=== PATIENT | female | born 1970 | race Caucasian/White ===

== ENCOUNTER 2017-12-19 17:53 | Emergency (ER) | payer SELFPAY ==
--- NOTE | 2017-12-19 18:41 | UC ---
Throat Pain/Nasal Reji HPI - HPI Summary HPI Summary: 47-year-old female presents for headache and URI symptoms. States she began with cold-like symptoms 4 days ago including nasal congestion, nasal discharge, sore throat, and intermittent frontal headache. She was seen at an urgent care center at her home in [place], [place] and started on a Medrol Dosepak. She states today her headache became more constant and increased in intensity. She rates as a 7/10. Associated with some photophobia. States she has had migraines in the past but that this is different from those headaches. Took some [id number] acetaminophen without relief. States she's been taking [id number] Sudafed with minimal relief from her nasal congestion. Denies fever, chills, visual disturbances, facial droop, slurred speech, weakness, numbness, or tingling of the extremities, dizziness, chest pain, shortness of breath, abdominal pain, nausea, or vomiting. - History of Current Complaint Chief Complaint: UCRespiratory Stated Complaint: HEADACHES,COLD,COUGH Time Seen by Provider: 12/19/17 18:28 Hx Obtained From: Patient ?: No Onset/Duration: Gradual Onset, Lasting Days - 4 Severity: Moderate Pain Intensity: 7 Cough: None - Allergies/Home Medications Allergies/Adverse Reactions: Allergies Allergy/AdvReac Type Severity Reaction Status Date / Time lidocaine Allergy Swelling Verified 12/19/17 18:58 Home Medications: Home Medications Steroid ? Name 1 tab PO DAILY 12/19/17 [History] PMH/Surg Hx/FS Hx/Imm Hx Previously Healthy: Yes - denies significant past medical history - Surgical History Surgical History: None - Family History Family History: Noncontributory - Social History Occupation: Employed Full-time Lives: With Family Alcohol Use: None Substance Use Type: None Smoking Status (MU): Never Smoked Tobacco Review of Systems Constitutional: Negative Skin: Negative Eyes: Photophobia ENT: Nasal Discharge, Sinus Congestion Respiratory: Negative Cardiovascular: Negative Gastrointestinal: Negative Neurological: Headache Is Patient Immunocompromised?: No All Other Systems Reviewed And Are Negative: Yes Physical Exam Triage Information Reviewed: Yes Appearance: Well-Appearing, Well-Nourished, Pain Distress - Appears mildly uncomfortable Vital Signs: Initial Vital Signs Temp 99.0 F 12/19/17 18:08 Pulse 100 12/19/17 18:08 Resp 18 12/19/17 18:08 BP 141/86 12/19/17 18:08 Pulse Ox 99 12/19/17 18:08 Vital Signs Reviewed: Yes Eyes: Positive: Conjunctiva Clear. Negative: Discharge ENT: Positive: Pharyngeal erythema - Mild pharyngeal erythema with cobblestoning., Nasal congestion, Nasal drainage, TMs normal, Sinus tenderness - Mild frontal tenderness, Uvula midline. Negative: Tonsillar swelling, Tonsillar exudate, Trismus, Muffled voice, Hoarse voice Neck: Positive: Supple, Nontender, No Lymphadenopathy Respiratory: Positive: Lungs clear, Normal breath sounds, No respiratory distress Cardiovascular: Positive: RRR, No Murmur Neurological: Positive: Alert Skin Exam: Normal Re-Evaluation - Re-Evaluation First Eval Re-Evaluation Time: 19:44 Change: Improved Comment: Patient states headache is improving with ketoralac. Decreased to 4-5/ 10 from 710. Throat Pain/Nasal Course/Dx - Course Course Of Treatment: 47 year old female with 4 day history of URI symptoms and headache. She was seen at in her home in [place] at onset of symptoms and started on Medrol Dosepak. She presents today reporting continued URI symptoms and a constant, worsening headache. Exam unremarkable exept for some mild frontal sinus tenderness, nasal congestion, and mild pharyngeal erythema with cobblestoning. She was given a dose of IM ketoralac with improvement in her headache. She was running a low grade temperature of 99 F here. With this and the progression of symptoms will treat for acute bacterial sinusitis using 10 day course of Augmentin. Will have her continue with the Medrol Dosepak and start using saline rinses twice daily. Patient verbalizes understanding and agrees with POC. - Differential Dx/Diagnosis Differential Diagnosis/HQI/PQRI: Sinusitis, URI, Other - Tension-type headache, migraine Provider Diagnoses: acute sinusitis, elevated blood pressure reading Discharge - Sign-Out/Discharge Documenting (check all that apply): Patient Departure All imaging exams completed and their final reports reviewed: No Studies - Discharge Plan Condition: Stable Disposition: HOME Prescriptions: Amoxicillin/Clavulanate TAB* [Augmentin TAB 875*] 875 mg PO BID #20 tab Patient Education Materials: Sinusitis (ED) Referrals: No Primary Care Phys,NOPCP [Primary Care Provider] - Additional Instructions: Your symptoms appear to be from a sinus infection. Because of the worsening of symptoms and the low grade fever here in the clinic I am going to start you on an antibiotic. Start Augmentin 1 tab every 12 hours for 10 days. Be sure to take with food and complete the entire course even if feeling better. I recommend using a saline rinse kit such as NeilMed or Netti Pot at least twice a day to help thin secretions and promote drainage. Continue to use an [id number] decongestant such as Sudafed according to directions. Finish out the Medrol dose pack as prescribed. You were given a shot of pain medication called ketoralac (Toradol) in the clinic. Do not take any other anti-inflammatory medications such as ibuprofen ( Advil, Motrin), naproxen (Aleve), or aspirin for at least 8 hours after receiving this medication. You may safely take acetaminophen (Tylenol) according to directions if needed. After the 8 hours has passed you may take acetaminophen (Tylenol) or ibuprofen (Advil, Motrin) according to directions as needed for headache or fever. Follow-up with your primary care provider in 7 days if symptoms persist. Your blood pressure was elevated in the clinic tonight. It is recommended that you follow up with your primary care provider within 4 weeks to have the rechecked. Seek immediate medical attention if you develop persistent fever greater than 100.5 F despite taking acetaminophen or ibuprofen, he developed any chest pain, shortness of breath, or any worsening of symptoms. - Billing Disposition and Condition Condition: STABLE Disposition: Home
[2017-12-19] MEDS ORDERED: Ketorolac INJ* 30 MG/ML 1 ML VIAL IM ONE (18:49)
[2017-12-19] MEDS ORDERED: Amoxicillin/Clavulanate TAB* 875 MG PO ONE (19:55)
[2017-12-19 20:21] VITALS: BP 124/66
== END 2017-12-19 20:15 | disposition home or self-care (01) ==
LOC: UCEAST 17:53
DX: J32.9 Chronic sinusitis, unspecified (principal); R03.0 Elevated blood-pressure reading, without diagnosis of hypertension; Z88.8 Allergy status to other drugs, medicaments and biological substances
CPT/HCPCS: 99202; A9270-GY; G0463; J1885